=== PATIENT | female | born 1960 | race Hispanic/Latino ===

== ENCOUNTER 2016-07-19 16:20 | Emergency (ER) | payer OTHER ==
[2016-07-19 16:26] VITALS: PULSE 90
--- NOTE | 2016-07-19 18:17 | C.PDOC ---
History Of Present Illness 55 yr old female presents to the ER stating while walking, she tripped on something and fell on to left rib cage. Patient reports of mild tenderness over the left axillary area. Denies LOC, head injury, nausea, vomiting, abdominal pain, neck pain, weakness or numbness. 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 ) Past Medical History Reviewed: Historical Data, Nursing Documentation, Vital Signs Vital Signs: Last Vital Signs Temp 98 F 07/19/16 16:23 Pulse 90 07/19/16 16:23 Resp 20 07/19/16 16:23 BP 154/90 H 07/19/16 16:23 Pulse Ox 99 07/19/16 18:19 - Medical History PMH: Anxiety, Asthma, Hyperlipidemia, Mitral Valve Prolapse, Parkinson's Disease Family History: States: No Known Family Hx - Social History Hx Alcohol Use: No Hx Substance Use: No - Immunization History Hx Tetanus Toxoid Vaccination: No Hx Influenza Vaccination: No Hx Pneumococcal Vaccination: No Review Of Systems Except As Marked, All Systems Reviewed And Found Negative. Gastrointestinal: Negative for: Nausea, Vomiting, Abdominal Pain Musculoskeletal: Positive for: Other ((+) Left axillary pain ). Negative for: Neck Pain Neurological: Negative for: Weakness, Numbness Physical Exam - Physical Exam Appears: Well, Non-toxic, No Acute Distress Skin: Warm, Dry, No Rash Head: Atraumatic, Normacephalic Chest: Symmetrical, No Tenderness Cardiovascular: Rhythm Regular, No Murmur Respiratory: Normal Breath Sounds, No Rales, No Rhonchi, No Stridor, No Wheezing Extremity: Normal ROM, No Swelling Neurological/Psych: Oriented x3, Normal Speech, Normal Motor, Normal Sensation ED Course And Treatment O2 Sat by Pulse Oximetry: 99 Medical Decision Making Medical Decision Making: PLAN: * X-Ray - Ribs & Chest Disposition - Disposition Referrals: Adam Rangel, [Non-Staff] - Disposition: HOME/ ROUTINE Disposition Time: 18:40 Condition: GOOD Additional Instructions: Thank you for letting us take care of you today. Your provider was Dr. Hurt. You were treated for a rib contusion. The emergency medical care you received today was directed at your acute symptoms. If you were prescribed any medication, please fill it and take as directed. It may take several days for your symptoms to resolve. Return to the Emergency Department if your symptoms worsen, do not improve, or if you have any other problems. Please contact your doctor or call one of the physicians/clinics you have been referred to that are listed on the Patient Visit Information form that is included in your discharge packet. Bring any paperwork you were given at discharge with you along with any medications you are taking to your follow up visit. Our treatment cannot replace ongoing medical care by a primary care provider (PCP) outside of the emergency department. Thank you for allowing the [facility] team to be part of your care today. You had an X-Ray: A Radiologist will review the ED reading if any change in treatment is needed we will contact you. Follow up with your doctor in 3-4 days for re-evaluation. Instructions: Rib Contusion (ED) - Clinical Impression Clinical Impression: Rib contusion - Scribe Statement The provider has reviewed the documentation as recorded by the Daisy Cook Provider Attestation: All medical record entries made by the Daisy were at my direction and personally dictated by me. I have reviewed the chart and agree that the record accurately reflects my personal performance of the history, physical exam, medical decision making, and the department course for this patient. I have also personally directed, reviewed, and agree with the discharge instructions and disposition.
[2016-07-19 18:58] VITALS: BP 116/76; RESP 18; TEMP 98.3; O2SAT 96
--- NOTE | 2016-07-20 20:19 | RAD ---
PROCEDURE: Radiographs of the Chest and Left Ribs. HISTORY: r/o fx and PTX COMPARISON: None available. TECHNIQUE: Frontal radiograph of the chest and multiple oblique radiographs of the left ribs were obtained. FINDINGS: LEFT RIBS: No definite evidence of acute displaced left-sided rib fracture. LUNGS: Slight elevation right hemidiaphragm. No focal consolidation PLEURA: No pneumothorax or pleural fluid. CARDIOVASCULAR: Normal sized heart. No pulmonary vascular congestion. OTHER FINDINGS: None. IMPRESSION: Unremarkable radiographs of the chest and left ribs. No definitive evidence of left sided acute displaced rib fracture. If symptoms persist or occult fracture suspected clinically recommend followup CT scan chest
== END 2016-07-19 18:58 | disposition home or self-care (01) ==
LOC: C.ER 16:20
DX: S20.212A Contusion of left front wall of thorax, initial encounter (principal); W01.0XXA Fall on same level from slipping, tripping and stumbling without subsequent striking against object, initial encounter